=== PATIENT | female | born 2000 | race African-American/Black ===

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

== ENCOUNTER 2018-01-17 16:45 | Outpatient (CLI) | payer OTHER ==
[2018-01-17 19:15] LABS: HEMATOCRIT 35.8 % (36.0-47.0); HEMOGLOBIN 11.7 g/dl (12.0-15.5); MEAN CORPUSCULAR HEMOGLOBIN 28.3 pg (27.0-33.0); MEAN CORPUSCULAR HGB CONC 32.7 g/dl (32.0-36.5); MEAN CORPUSCULAR VOLUME 86.5 fl (80.0-96.0); PLATELET COUNT, AUTOMATED 258 10^3/uL (150-450); RED BLOOD COUNT 4.14 10^6/uL (4.00-5.40); RED CELL DISTRIBUTION WIDTH 14.8 % (11.5-14.5); WHITE BLOOD COUNT 8.2 10^3/uL (4.0-10.0)
[2018-01-17 19:34] LABS: ALBUMIN 2.8 GM/DL (3.2-5.2); ALBUMIN/GLOBULIN RATIO 0.62 (1.00-1.93); ALKALINE PHOSPHATASE 151 U/L (45-117); ALT/SGPT 10 U/L (12-78); ANION GAP 7 MEQ/L (8-16); AST/SGOT 23 U/L (7-37); BILIRUBIN,TOTAL 0.4 MG/DL (0.2-1.0); BLOOD UREA NITROGEN 7 MG/DL (7-18); CALCIUM LEVEL 9.6 MG/DL (8.5-10.1); CARBON DIOXIDE LEVEL 24 MEQ/L (21-32); CHLORIDE LEVEL 105 MEQ/L (98-107); CREATININE FOR GFR 0.53 MG/DL (0.55-1.30); GLUCOSE, FASTING 90 MG/DL (70-100); POTASSIUM SERUM 4.7 MEQ/L (3.5-5.1); SODIUM LEVEL 136 MEQ/L (136-145); TOTAL PROTEIN 7.3 GM/DL (6.4-8.2)
[2018-01-17 21:05] LABS: CREATININE,RANDOM URINE 93.8 MG/DL
[2018-01-17 21:05] LABS: TOTAL PROTEIN,RANDOM URINE 42.3 MG/DL (0.0-12.0)
== END 2018-01-17 22:00 | disposition home or self-care (01) ==
LOC: M LDO 16:45
DX: O26.893 Other specified pregnancy related conditions, third trimester (principal); N89.9 Noninflammatory disorder of vagina, unspecified; Z3A.38 38 weeks gestation of pregnancy
CPT/HCPCS: 59025

== ENCOUNTER 2018-01-28 08:53 | Outpatient (CLI) | payer OTHER | END 2018-01-28 10:08 | disposition home or self-care (01) | LOC: M LDO 08:53 | DX: O47.1 False labor at or after 37 completed weeks of gestation (principal); Z3A.40 40 weeks gestation of pregnancy ==

== ENCOUNTER 2018-05-08 09:38 | Emergency (ER) | payer OTHER | END 2018-05-08 10:17 | disposition home or self-care (01) | LOC: M ED 09:38 | DX: T15.11XA Foreign body in conjunctival sac, right eye, initial encounter (principal); X58.XXXA Exposure to other specified factors, initial encounter; Y92.89 Other specified places as the place of occurrence of the external cause; Z91.018 Allergy to other foods; Z91.013 Allergy to seafood | CPT/HCPCS: 99282 ==

== ENCOUNTER → 2018-06-23 | Outpatient (CLI) | payer OTHER ==
[2018-06-23 12:46] LABS: CHLAMYDIA DNA AMPLIFICATION NEGATIVE (NEGATIVE); GC DNA AMPLIFICATION NEGATIVE (NEGATIVE)
== END ==
LOC: M LAB 09:41
DX: Z11.3 Encounter for screening for infections with a predominantly sexual mode of transmission (principal)
CPT/HCPCS: 36415

== ENCOUNTER 2018-07-10 17:28 | Emergency (ER) | payer OTHER ==
[2018-07-10 20:19] LABS: CHLAMYDIA DNA AMPLIFICATION NEGATIVE (NEGATIVE); GC DNA AMPLIFICATION NEGATIVE (NEGATIVE)
== END 2018-07-10 19:32 | disposition home or self-care (01) ==
LOC: M ED 17:28
DX: N89.8 Other specified noninflammatory disorders of vagina (principal); Z91.040 Latex allergy status; J45.909 Unspecified asthma, uncomplicated; Z91.013 Allergy to seafood; Z91.018 Allergy to other foods
CPT/HCPCS: 87210

== ENCOUNTER 2019-02-27 11:59 | Emergency (ER) | payer OTHER ==
[~2019-02-27] VITALS: Ht 167.6 cm; Wt 88.2 kg
[~2019-02-27 11:59] MED LIST changes: +COLA100C5 PO; +IBUP-1114 PO; +MAPA500T2 PO; +PRENTAB9 PO
[2019-02-27 12:00] VITALS: BP 137/78
[2019-02-27] MEDS ORDERED: IBUP-1114 PO (12:46)
[2019-02-27] MEDS ORDERED: CHLO0.5L PO (12:46)
== END 2019-02-27 13:10 | disposition home or self-care (01) ==
LOC: M ED 11:59
DX: J06.9 Acute upper respiratory infection, unspecified (principal); J04.0 Acute laryngitis; Z91.013 Allergy to seafood; Z91.018 Allergy to other foods